=== PATIENT | male | born 1970 ===

== ENCOUNTER → 2024-07-19 12:10 | Outpatient (ROUT) | payer SELFPAY | LOC: LAB 12:11 | DX: D48.5 Neoplasm of uncertain behavior of skin (principal) | CPT/HCPCS: 87070; 87205 ==

== ENCOUNTER → 2024-09-05 12:09 | Outpatient (ROUT) | payer BC, SELFPAY | PROVIDERS: Visit Provider Dermatology | DX: D48.5 Neoplasm of uncertain behavior of skin (principal) | CPT/HCPCS: 87070; 87077; 87205 ==

== ENCOUNTER → 2024-11-07 16:52 | Outpatient (ROUT) | payer BC, SELFPAY | PROVIDERS: Visit Provider Dermatology | DX: L03.90 Cellulitis, unspecified (principal); Z79.899 Other long term (current) drug therapy | CPT/HCPCS: 87070; 87075; 87186; 87205 ==